=== PATIENT | female | born 1950 | race Caucasian/White ===

== ENCOUNTER → 2019-08-11 | Outpatient (CLI) | payer MEDICARE, BC ==
--- NOTE | 2019-08-11 16:07 | Diagnostic Imaging Report ---
INDICATION: Left-sided chest pain x3 days. COMPARISON: None. FINDINGS: Frontal and lateral views of the chest demonstrate normal heart size and pulmonary vascularity. There is vague ill-defined 1.3 cm nodular opacity within the lateral left mid to lower lung field. Note is made of perhaps minimal associated pleural thickening as well as some adjacent soft tissue surgical clips. Otherwise, lungs are clear. There is no large effusion or pneumothorax on either side. Osseous structures show no gross acute abnormalities. IMPRESSION: 1. Vague opacity in the lateral left mid lower lung field as above. Given the presence of surgical clips, findings may be secondary to previous surgical or other therapeutic intervention. There is no prior available for comparison. Correlation with clinical and surgical history is recommended. If further radiographic evaluation is indicated, postcontrast CT chest is advised. Dictated by: Dictated on workstation # [id number]
== END ==
LOC: RAD FS 15:47
PROVIDERS: ATTEND Nurse Practitioner
DX: R07.89 Other chest pain (principal); Z98.890 Other specified postprocedural states
CPT/HCPCS: 71046

== ENCOUNTER → 2019-08-19 | Outpatient (CLI) | payer MEDICARE, BC ==
[~2019-08-19] MED LIST: CATHETER FLUSH 10 ML SYR IV PRN; HOLD METFORMIN - RECEIVED CONTRAST 20 ML VIAL IV SCH; IOHEXOL 350 MG/ML 100 ML (OMNIPAQUE 350) VIAL IV ONE; NS 100 ML (IVPB) BAG IV ONE
[2019-08-19 10:12] LABS: ALANINE AMINOTRANSFERASE 25 U/L (0-55); ALBUMIN 4.1 GM/DL (3.2-4.5); ALKALINE PHOSPHATASE 98 U/L (40-136); BILIRUBIN,TOTAL 0.3 MG/DL (0.1-1.0); BUN/CREATININE RATIO 11; CALCIUM 9.2 MG/DL (8.5-10.1); CARBON DIOXIDE 25 MMOL/L (21-32); CHLORIDE 105 MMOL/L (98-107); CREATININE SERUM 0.75 MG/DL (0.60-1.30); GFR ESTIMATED > 60; GLUCOSE 106 MG/DL (70-105); POTASSIUM 4.2 MMOL/L (3.6-5.0); SODIUM 142 MMOL/L (135-145); TOTAL PROTEIN 7.7 GM/DL (6.4-8.2)
--- NOTE | 2019-08-19 11:59 | Diagnostic Imaging Report ---
PROCEDURE: CT chest with and without contrast. TECHNIQUE: Multiple contiguous axial images were obtained through the chest before and after administration of intravenous contrast. Auto Exposure Controls were utilized during the CT exam to meet ALARA standards for radiation dose reduction. INDICATION: Left-sided chest pain. FINDINGS: There are no prior CT examinations available for comparison. The plain film examination of the chest performed on 08/11/2019 failed to show any sign of an acute cardiopulmonary abnormality. However, there was a vague ill-defined 1.3 cm nodular opacity along the periphery of the left mid lung. On this exam, there is a poorly defined band of increased density in this region. I suspect this is secondary to scar formation and/or chronic atelectasis. There is no parenchymal lung mass in this area to indicate a neoplastic process. The left lung is otherwise generally clear and well aerated. There is no sign of pneumonia or pleural effusion involving either lung. The heart size is within normal limits. There are no coronary artery calcifications identified with certainty. The aorta is not abnormally dilated, and there is no sign of a dissection. There is no defect within the pulmonary arteries, although the pulmonary arteries were not fully opacified. There is no mediastinal or hilar adenopathy. A few small nodes are evident in the mediastinum and aorticopulmonary window. These are not pathologically enlarged, however. The thyroid gland is prominent but seems homogeneous. The patient has had a left mastectomy, and there are numerous surgical clips in the left axilla. There is no sign of a mass in this area. There is no evidence for a mass involving the right breast, but there are several prominent lymph nodes in the right axilla. The largest of these nodes measures approximately 5.6 cm, but this node does appear to be predominantly replaced by fat. However, there is another node measuring 1.4 x 2.2 cm, and this appears to be predominantly solid (normal axillary lymph node 1.5 cm or less). The reason for the adenopathy in the right axilla is not certain. If the patient has had a recent mammogram, it would be helpful for comparison. If the patient has not had a recent mammogram, then mammography should be obtained for further evaluation. Also, there is a suggestion of a small 9 mm lytic lesion within the mid portion of the left fifth rib. The cortex of the rib in this area is slightly buckled indicating a nondisplaced fracture. This fracture could be pathologic in nature. If further evaluation is desired, then a nuclear medicine bone scan would be recommended. No other bony abnormality is appreciated. The sections through the upper abdomen show that there is sludge and/or small calculi within the gallbladder. There is no sign of acute cholecystitis. The liver is of lower density than usually seen. This does suggest fatty metamorphosis. There is no acute abnormality of the visualized upper abdomen. IMPRESSION: 1. The area of increased density seen on the plain film exam in the left mid lung is felt to be secondary to chronic atelectasis/scar formation. There is no evidence for a mass in this area, nor is there any sign of an acute cardiopulmonary abnormality. However, in this region, there is a nondisplaced fracture of the left fifth rib. There is a low-density lesion within the rib at the level of the fracture, and this injury may well be pathologic in nature. 2. The left breast is surgically absent. There is scar formation in the left axilla, but there is no sign of recurrent malignancy. However, there do appear to be several enlarged lymph nodes in the right axilla. These are nonspecific but worrisome for involvement by malignancy. Recommendations as above. 3. There is no acute cardiopulmonary abnormality noted otherwise. 4. There is cholelithiasis/sludge within the gallbladder, but there is no sign of acute cholecystitis. If further evaluation is desired, then ultrasound would be recommended. 5. These results were discussed with Nicki Hughes APRN. Dictated by: Dictated on workstation # [id number]
== END ==
LOC: RAD FS 09:35
PROVIDERS: ATTEND Nurse Practitioner
DX: J98.4 Other disorders of lung (principal); I88.9 Nonspecific lymphadenitis, unspecified; S22.32XA Fracture of one rib, left side, initial encounter for closed fracture; Z90.12 Acquired absence of left breast and nipple
CPT/HCPCS: 36415; 71270; 80053